=== PATIENT | male | born 1975 | race African-American/Black ===

== ENCOUNTER 2023-10-21 16:47 | Emergency (ER) | payer OTHER ==
[~2023-10-21] VITALS: Ht 190.5 cm; Wt 60.0 kg
[2023-10-21 17:09] LABS: COVID AG,FIA SOURCE NASAL SWAB
[2023-10-21 17:28] LABS: INFLUENZA TYPE B NEGATIVE FOR TYPE B (NEGATIVE); SARS-COV2 (COVID) ANTIGEN,FIA Negative (Negative)
[2023-10-21 17:35] LABS: BASOPHILS % (AUTO) 0.3 % (0.0-2.0); EOSINOPHILS % (AUTO) 1.2 % (1.0-6.0); HEMATOCRIT 44.8 % (41-53); HEMOGLOBIN 14.6 g/dL (13.5-17.5); LYMPHOCYTES # (AUTO) 0.8 K/uL (1.0-4.8); MEAN CORPUSCULAR HEMOGLOBIN 27.6 pg (26.0-34.0); MEAN CORPUSCULAR HGB CONC 32.7 G/dL (31.0-37.0); MEAN CORPUSCULAR VOLUME 84 fL (80-100); MONOCYTES # (AUTO) 1.1 K/uL (0.1-1.0); MONOCYTES % (AUTO) 12.3 % (2.0-9.0); NEUTROPHILS # (AUTO) 6.7 K/uL (1.8-7.7); NEUTROPHILS % (AUTO) 77.2 % (40.0-70.0); PLATELET COUNT (AUTO) 195 K/uL (150-450); RED BLOOD CELL COUNT(AUTO) 5.31 MIL/uL (4.50-5.90); RED CELL DISTRIBUTION WIDTH 15.5 % (11.5-14.5); WHITE BLOOD COUNT (AUTO) 8.7 K/uL (4.5-11.0)
[2023-10-21 17:37] LABS: ANION GAP 12 mmol/L (8-16); CALCIUM, TOTAL 9.6 mg/dL (8.8-10.5); CARBON DIOXIDE 25 mmol/L (22-29); CHLORIDE 100 mmol/L (98-107); CREATININE 1.01 mg/dL (0.60-1.30); GLOMERULAR FILTR. RATE CALC > 60 mL/min (>60); GLUCOSE,RANDOM 115 mg/dL (70-110); POTASSIUM 3.9 mmol/L (3.5-5.1); SODIUM SERUM 137 mmol/L (136-145); UREA NITROGEN, BLOOD 10 mg/dL (7-18)
[2023-10-21 17:44] LABS: ALANINE AMINOTRANSFERASE 169 U/L (12-78); ALBUMIN 4.2 g/dL (3.4-5.0); ALKALINE PHOSPHATASE 92 U/L (46-116); ASPARTATE AMINOTRANSFERASE 92 U/L (15-37); BILIRUBIN,TOTAL 0.6 mg/dL (0.1-1.0); LIPASE 18 U/L (16-77); TOTAL PROTEIN, SERUM 8.1 g/dL (6.4-8.2)
[2023-10-21] MEDS: MAG HYDROX/ALUMINUM HYD/SIMETH 30 ML SUSPENSION UDCUP PO ONE (18:05)
[2023-10-21 18:28] LABS: INFLUENZA TYPE A POSITIVE FOR TYPE A (NEGATIVE)
[2023-10-21 20:00] VITALS: TEMP 98.9
[2023-10-21] MEDS: SODIUM CHLORIDE 0.9% 1,000 ML IV ONE (20:03)
[2023-10-21] MEDS: FAMOTIDINE 20 MG/2 ML VIAL IVP ONE (20:05)
[2023-10-21] MEDS: KETOROLAC TROMETHAMINE 30 MG/ML VIAL IVP ONE (20:06)
[2023-10-21] MEDS: ONDANSETRON HCL 4 MG/2 ML VIAL IVP ONE (20:07)
[2023-10-21] MEDS ORDERED: ONDA-104 PO (20:52)
[2023-10-21] MEDS ORDERED: ACET-3385 PO (20:52)
[2023-10-21 22:02] VITALS: BP 127/80; PULSE 84; RESP 20
== END 2023-10-21 22:04 | disposition home or self-care (01) ==
LOC: EMS 16:49
DX: J10.1 Influenza due to other identified influenza virus with other respiratory manifestations (principal); Z20.822 Contact with and (suspected) exposure to COVID-19
CPT/HCPCS: 99284; 96374; 96375; 96361; 87426; 80053; 83690; 85025; 87804; 36415; 93005; G0480; J3490; J1885; J2405; J7030